=== PATIENT | female | born 1995 ===

== ENCOUNTER 2023-11-04 15:03 | Outpatient (CLI) | payer OTHER, SELFPAY ==
--- NOTE | ~2023-11-04 | US_ITS ---
EXAMINATION: US OB /maternal detail DATE: 11/04/2023 16:01 INDICATION: anatomic survey. TECHNIQUE: Real-time ultrasound of the pelvis was performed. COMPARISON: None. FINDINGS: There is a single living fetus in breech presentation. The placenta is anterior, 7.2 cm in the cervi x. The cervical length is 3.6 cm on transabdominal images, which is normal. heart rate is 147 b eats per minute (bpm). The amniotic fluid volume is subjectively normal. The following biometric data were obtained: Biparietal diameter (BPD): 3.9 cm; head circumference (HC): 15.5 cm; abdominal circumference (AC): 13 .0 cm; femur length (FL): 2.9 cm. These measurements are concordant. Estimated weight is 247 g +/- 37 g, which correlates with the 38th percentile when 04/01/24 is u sed as estimated date of delivery. As single measurements, these parameters are each equal to the following estimated gestational ages: BPD: 17 weeks 6 days. HC: 18 weeks 3 days. AC: 18 weeks 4 days. FL: 18 weeks 5 days. estimated gestational age based solely on measurements from this exam is 18 weeks 3 days +/- 1 weeks 2 days. The cerebral ventricles, cerebellum, cisterna magna, nuchal fold, lip, and visualized portions of the spine are normal. The four-chamber heart is normal. The ventricular outflow tracts are not well visu alized. The diaphragm, stomach, kidneys, and bladder are normal. There are two umbilical arteries to yield a 3-vessel cord. The cord insertion is normal. IMPRESSION: 1. Single living fetus in breech presentation. 2. Estimated weight is 247 g +/- 37 g, which correlates with the 38th percentile when 04/01/24 is used as estimated date of delivery. 3. Normal anatomic survey. Reviewed, dictated and finalized at location A. IMPRESSION: 1. Single living fetus in breech presentation. 2. Estimated weight is 247 g +/- 37 g, which correlates with the 38th pe rcentile when 04/01/24 is used as estimated date of delivery. 3. Normal anatomic survey.
== END 2023-11-04 15:04 ==
PROVIDERS: PCP Obstetrics & Gynecology Gynecologic Oncology; Visit Provider Obstetrics & Gynecology Gynecologic Oncology
DX: Z36.9 Encounter for antenatal screening, unspecified (principal)
CPT/HCPCS: 76805